=== PATIENT | female | born 1990 ===

== ENCOUNTER → 2021-01-20 08:00 | Outpatient (CLI) | payer OTHER | END | disposition home or self-care (01) | LOC: LAB 08:00 → ADM 08:45 → CIR.AMB 01-26 08:45 → EDSTATUS 01-26 08:45 | PROVIDERS: ATTEND Otolaryngology Otology & Neurotology | DX: H71.01 Cholesteatoma of attic, right ear (principal); D68.9 Coagulation defect, unspecified; Z03.818 Encounter for observation for suspected exposure to other biological agents ruled out ==

== ENCOUNTER 2021-04-06 06:09 | Day surgery (SDC) | payer OTHER | END 2021-04-06 16:00 | disposition home or self-care (01) | LOC: CIR.AMB 06:09 | PROVIDERS: ATTEND Otolaryngology Otology & Neurotology | DX: H71.01 Cholesteatoma of attic, right ear (principal); Z20.822 Contact with and (suspected) exposure to COVID-19 ==